=== PATIENT | female | born 1960 | race African-American/Black ===

== ENCOUNTER 2021-01-04 01:43 | Emergency (ER) | payer SELFPAY ==
[~2021-01-04] VITALS: Ht 162.6 cm; Wt 55.0 kg
[2021-01-04 02:18] LABS: HEMATOCRIT 46.5 % (37.0-47.0); HEMOGLOBIN 15.1 g/dl (12.0-16.0); IMMATURE GRANULOCYTES 0.2 % (0.0-5.0); MEAN CELL VOLUME 85.5 fL CALC (80.0-100.0); MEAN CORPUSCULAR HGB 27.8 pG CALC (26.0-32.0); MEAN CORPUSCULAR HGB CONC 32.5 g/dL CAL (32.0-36.0); NEUT# 3.53 thou/uL (2.00-7.15); RED BLOOD COUNT 5.44 mill/uL (4.20-5.60); RED CELL DISTRI WIDTH 15.2 % (11.5-15.5)
[2021-01-04 02:26] LABS: ALBUMIN 4.8 g/dL (3.2-5.0); ALKALINE PHOSPHATASE 84 u/l (38-126); BILIRUBIN, TOTAL 0.6 mg/dL (0.0-1.4); BUN 7 mg/dL (8-23); BUN/CREATININE RATIO 10 (12-20 (CALC)); CHLORIDE 111 mmol/l (95-108); CREATININE 0.7 mg/dL (0.5-1.0); ETHYL ALCOHOL 283 mg/dl (0-30); GFR > 60 ML/MIN (>=60 (CALC)); GFR FOR AFR.AMER. > 60 ML/MIN (>=60 (CALC)); LIPASE 52 u/l (23-300); SGOT/AST 35 u/l (9-36); SODIUM 145 mmol/l (137-146); TOTAL PROTEIN 8.9 g/dL (6.3-8.2)
[2021-01-04 02:30] LABS: URINE BILIRUBIN - DIPSTICK NEGATIVE (NEGATIVE); URINE BLOOD DIPSTICK SMALL (NEGATIVE); URINE COLOR YELLOW; URINE GLUCOSE - DIPSTICK NEGATIVE (NEGATIVE); URINE KETONE NEGATIVE (NEGATIVE); URINE PROTEIN - DIPSTICK NEGATIVE (NEG-TRACE); URINE UROBILINOGEN - DIPSTICK 0.2 E.U./dL (0.2)
[2021-01-04 02:31] LABS: ANION GAP 20 (6-22 (CALC)); CARBON DIOXIDE 19 mmol/l (22-30); POTASSIUM 4.7 mmol/l (3.5-5.1)
[2021-01-04 02:35] LABS: URINE NITRITE - DIPSTICK NEGATIVE (Negative)
[2021-01-04 02:36] LABS: URINE LEUK ESTERASE NEGATIVE (NEGATIVE)
[2021-01-04 02:39] LABS: URINE BACTERIA MODERATE hpf; URINE EPITHELIAL CELLS MODERATE EPI/hpf (0-FEW); URINE TRICHOMONAS MODERATE hpf
[2021-01-04] MEDS ORDERED: EYE DROPS (03:07)
[2021-01-04] MEDS ORDERED: METFORMIN HCL500 M2 PO (03:07)
[2021-01-04 03:47] VITALS: BP 158/70
== END 2021-01-04 03:47 | DRG 880 ==
LOC: ED 01:43
DX: F41.9 Anxiety disorder, unspecified (principal); F10.129 Alcohol abuse with intoxication, unspecified; E11.9 Type 2 diabetes mellitus without complications; Y90.8 Blood alcohol level of 240 mg/100 ml or more; Z79.84 Long term (current) use of oral hypoglycemic drugs; Z59.811 Housing instability, housed, with risk of homelessness
CPT/HCPCS: J2060

== ENCOUNTER 2023-10-29 20:23 | Emergency (ER) | payer OTHER ==
[~2023-10-29] VITALS: Ht 162.6 cm; Wt 65.0 kg
[~2023-10-29 20:23] MED LIST: EYE DROPS; METFORMIN HCL500 M2 PO
[2023-10-29] MEDS ORDERED: KETOROLAC TROMETHAMINE 30 MG/ML SDV IM ONE (21:40)
[2023-10-29] MEDS ORDERED: METHOCARBAMOL 500 MG/TAB VT ONE (21:40)
[2023-10-29 22:40] VITALS: BP 130/88
== END 2023-10-29 22:40 | disposition left against medical advice (07) | DRG 103 ==
LOC: ED 20:23
DX: R51.9 Headache, unspecified (principal); M25.561 Pain in right knee; M54.2 Cervicalgia; M54.50 Low back pain, unspecified; E11.9 Type 2 diabetes mellitus without complications; V89.2XXA Person injured in unspecified motor-vehicle accident, traffic, initial encounter; Z53.29 Procedure and treatment not carried out because of patient's decision for other reasons